=== PATIENT | male | born 1935 | race Caucasian/White ===

== ENCOUNTER → 2017-03-12 | Outpatient (CLI) | payer MEDICARE, OTHER | END | disposition home or self-care (01) | LOC: Rad HDHVI 12:16 | PROVIDERS: ATTEND Internal Medicine Cardiovascular Disease | DX: I70.0 Atherosclerosis of aorta (principal) | CPT/HCPCS: 71020 ==

== ENCOUNTER → 2017-05-19 | Outpatient (CLI) | payer MEDICARE, OTHER | END | disposition home or self-care (01) | LOC: Rad HDHVI 08:52 | PROVIDERS: ATTEND Internal Medicine Cardiovascular Disease | DX: J44.9 Chronic obstructive pulmonary disease, unspecified (principal) | CPT/HCPCS: 93306 ==

== ENCOUNTER → 2017-08-10 | Outpatient (CLI) | payer MEDICARE, OTHER ==
[~2017-08-10] VITALS: Ht 185.4 cm; Wt 88.0 kg
[~2017-08-10] MED LIST: ADENOSINE 74 MG in GIVE UN-DILUTED 0 ML IV ONE; ADENOSINE 90 MG/30 ML INJ IV ONE
== END | disposition home or self-care (01) ==
LOC: Rad HDHVI 13:25
PROVIDERS: ATTEND Internal Medicine Cardiovascular Disease
DX: Z01.810 Encounter for preprocedural cardiovascular examination (principal)
CPT/HCPCS: 78452; 93005; 96374; 96375; A9500; J0153

== ENCOUNTER → 2018-10-24 | Outpatient (CLI) | payer MEDICARE, OTHER ==
[2018-10-24 12:10] LABS: Basophils # (auto) 0 uL; Basophils % (auto) 0.6 % (0.0-2.0); Eosinophils # (auto) 0.3 uL; Eosinophils % (auto) 4.2 % (0.0-7.0); Hematocrit 45.8 % (41.0-53.0); Lymphocytes # (auto) 1.1 uL; Lymphocytes % (auto) 15.5 % (10.0-50.0); Mean Corpuscular Hemoglobin 31.7 pg (28.0-32.0); Mean Corpuscular Hgb Conc. 34.9 g/dL (32.0-36.0); Mean Corpuscular Volume 90.8 fL (80.0-100.0); Monocytes # (auto) 0.5 uL; Monocytes % (auto) 7.6 % (0.0-12.0); Neutrophils % (auto) 72.1 % (37.0-80.0); Nucleated Red Blood Cells % 1.1 %; Platelet Count (auto) 143 10^3/uL (140-450); Red Blood Cells 5.04 10^6/uL (4.5-5.90); Red Cell Distribution Width 13.8 % (11.8-14.3); Urine Blood 1+ /uL (Negative); Urine Specific Gravity 1.023 (1.001-1.035); White Blood Cell 6.9 10^3/uL (4.4-10.8)
[2018-10-24 12:19] LABS: Albumin 3.6 g/dL (3.4-5.0); Calcium 8.9 mg/dL (8.5-10.1)
[2018-10-24 12:25] LABS: BUN/Creatinine Ratio 17.4; Bilirubin, Total 0.7 mg/dL (0.2-1.0); Total Protein 7.3 g/dL (6.4-8.2)
[2018-10-24 12:37] LABS: Free T4 (Free Thyroxine) 1.08 ng/dL (0.89-1.76)
[2018-10-24 12:53] LABS: Prostate Specific Antigen 7.81 ng/mL (0.0-4.0)
== END | disposition home or self-care (01) ==
LOC: LAB 08:22
PROVIDERS: ATTEND Internal Medicine
DX: E55.9 Vitamin D deficiency, unspecified (principal); E03.9 Hypothyroidism, unspecified; E11.9 Type 2 diabetes mellitus without complications; E29.1 Testicular hypofunction; D51.9 Vitamin B12 deficiency anemia, unspecified; N39.0 Urinary tract infection, site not specified; C61 Malignant neoplasm of prostate
CPT/HCPCS: 36415; 80053; 80061; 81003; 82306; 82607; 83036; 84153; 84154; 84403; 84439; 84443; 85025

== ENCOUNTER → 2019-11-14 | Outpatient (CLI) | payer MEDICARE, OTHER ==
[2019-11-14 12:10] LABS: Basophils # (auto) 0 10 ^3/uL (0-0.2); Basophils % (auto) 0.7 % (0.0-2.0); Eosinophils # (auto) 0.3 10 ^3/uL (0-0.8); Eosinophils % (auto) 5.7 % (0.0-7.0); Hematocrit 44.9 % (41.0-53.0); Hemoglobin 15.4 g/dL (13.5-17.5); Lymphocytes # (auto) 1.1 10 ^3/uL (0.4-5.4); Mean Corpuscular Hemoglobin 31.9 pg (28.0-32.0); Mean Corpuscular Hgb Conc. 34.4 g/dL (32.0-36.0); Mean Corpuscular Volume 92.7 fL (80.0-100.0); Monocytes # (auto) 0.5 10 ^3/uL (0-1.3); Neutrophils # (auto) 3.9 10 ^3/uL (1.6-8.6); Neutrophils % (auto) 65.6 % (37.0-80.0); Platelet Count (auto) 128 10^3/uL (140-450); Red Blood Cells 4.84 10^6/uL (4.5-5.90); Red Cell Distribution Width 13.2 % (11.8-14.3); White Blood Cell 5.9 10^3/uL (4.4-10.8)
[2019-11-14 12:13] LABS: Urine Blood 1+ /uL (Negative); Urine Specific Gravity 1.027 (1.001-1.035)
[2019-11-14 12:34] LABS: Free T4 (Free Thyroxine) 0.96 ng/dL (0.89-1.76); Prostate Specific Antigen 2.62 ng/mL (0.0-4.0)
[2019-11-14 12:37] LABS: Albumin 3.5 g/dL (3.4-5.0); BUN/Creatinine Ratio 25.5; Bilirubin, Total 0.4 mg/dL (0.2-1.0); Calcium 9.6 mg/dL (8.5-10.1)
== END | disposition home or self-care (01) ==
LOC: LAB 08:14
PROVIDERS: ATTEND Internal Medicine
DX: C61 Malignant neoplasm of prostate (principal); E03.9 Hypothyroidism, unspecified; K90.9 Intestinal malabsorption, unspecified; E29.1 Testicular hypofunction; N39.0 Urinary tract infection, site not specified; D51.9 Vitamin B12 deficiency anemia, unspecified; Z79.899 Other long term (current) drug therapy; Z00.00 Encounter for general adult medical examination without abnormal findings
CPT/HCPCS: 36415; 80053; 80061; 81003; 82306; 82607; 83036; 84153; 84403; 84439; 84443; 85025; 87086

== ENCOUNTER → 2020-09-09 | Outpatient (CLI) | payer MEDICARE, BC ==
[2020-09-09 11:36] LABS: Urine Blood Negative /uL (Negative); Urine Specific Gravity 1.018 (1.001-1.035)
[2020-09-09 11:59] LABS: Albumin 3.8 g/dL (3.4-5.0); Calcium 9.4 mg/dL (8.5-10.1); Potassium 4.9 mmol/L (3.5-5.1)
[2020-09-09 12:03] LABS: BUN/Creatinine Ratio 22.1; Bilirubin, Total 0.6 mg/dL (0.2-1.0); Total Protein 7.3 g/dL (6.4-8.2)
[2020-09-09 12:08] LABS: Basophils # (auto) 0.1 10 ^3/uL (0-0.2); Basophils % (auto) 0.9 % (0.0-2.0); Eosinophils # (auto) 0.2 10 ^3/uL (0-0.8); Eosinophils % (auto) 3.8 % (0.0-7.0); Hematocrit 43.2 % (41.0-53.0); Hemoglobin 15.3 g/dL (13.5-17.5); Lymphocytes # (auto) 0.9 10 ^3/uL (0.4-5.4); Lymphocytes % (auto) 15.5 % (10.0-50.0); Mean Corpuscular Hgb Conc. 35.4 g/dL (32.0-36.0); Mean Corpuscular Volume 90.4 fL (80.0-100.0); Monocytes # (auto) 0.4 10 ^3/uL (0-1.3); Monocytes % (auto) 7.4 % (0.0-12.0); Neutrophils # (auto) 4.1 10 ^3/uL (1.6-8.6); Neutrophils % (auto) 72.4 % (37.0-80.0); Nucleated Red Blood Cells % 0.1 %; Platelet Count (auto) 137 10^3/uL (140-450); Red Blood Cells 4.78 10^6/uL (4.5-5.90); Red Cell Distribution Width 13.2 % (11.8-14.3); White Blood Cell 5.6 10^3/uL (4.4-10.8)
[2020-09-09 12:11] LABS: Free T4 (Free Thyroxine) 0.85 ng/dL (0.89-1.76); Prostate Specific Antigen 2.51 ng/mL (0.0-4.0)
== END | disposition home or self-care (01) ==
LOC: LAB 10:02
PROVIDERS: ATTEND Internal Medicine
DX: C61 Malignant neoplasm of prostate (principal); D51.3 Other dietary vitamin B12 deficiency anemia; I10 Essential (primary) hypertension; E11.9 Type 2 diabetes mellitus without complications; E55.9 Vitamin D deficiency, unspecified; R00.2 Palpitations; R53.1 Weakness; R30.0 Dysuria
CPT/HCPCS: 36415; 80053; 80061; 81003; 82306; 82607; 83036; 84153; 84403; 84439; 84443; 85025

== ENCOUNTER → 2021-09-10 | Outpatient (CLI) | payer MEDICARE, BC ==
[2021-09-10 11:25] LABS: Basophils # (auto) 0.1 10 ^3/uL (0-0.2); Basophils % (auto) 0.8 % (0.0-2.0); Eosinophils # (auto) 0.2 10 ^3/uL (0-0.8); Hematocrit 44.4 % (41.0-53.0); Hemoglobin 15.6 g/dL (13.5-17.5); Lymphocytes # (auto) 1.1 10 ^3/uL (0.4-5.4); Lymphocytes % (auto) 17.7 % (10.0-50.0); Mean Corpuscular Hemoglobin 31.2 pg (28.0-32.0); Mean Corpuscular Hgb Conc. 35.1 g/dL (32.0-36.0); Mean Corpuscular Volume 88.8 fL (80.0-100.0); Monocytes # (auto) 0.5 10 ^3/uL (0-1.3); Monocytes % (auto) 7.7 % (0.0-12.0); Neutrophils # (auto) 4.6 10 ^3/uL (1.6-8.6); Neutrophils % (auto) 70.8 % (37.0-80.0); Nucleated Red Blood Cells % 0.2 %; Red Cell Distribution Width 13.7 % (11.8-14.3); White Blood Cell 6.5 10^3/uL (4.4-10.8)
[2021-09-10 11:27] LABS: Urine Blood TRACE /uL (Negative); Urine Specific Gravity 1.018 (1.001-1.035)
[2021-09-10 11:49] LABS: Potassium 4.1 mmol/L (3.5-5.1)
[2021-09-10 11:53] LABS: Albumin 3.8 g/dL (3.4-5.0); BUN/Creatinine Ratio 17.7; Calcium 9.3 mg/dL (8.5-10.1)
[2021-09-10 11:56] LABS: Bilirubin, Total 0.8 mg/dL (0.2-1.0)
[2021-09-10 11:58] LABS: Free T4 (Free Thyroxine) 1.25 ng/dL (0.89-1.76); Prostate Specific Antigen 2.15 ng/mL (0.0-4.0)
== END | disposition home or self-care (01) ==
LOC: LAB 08:59
PROVIDERS: ATTEND Internal Medicine
DX: C61 Malignant neoplasm of prostate (principal); D51.3 Other dietary vitamin B12 deficiency anemia; I10 Essential (primary) hypertension; E11.9 Type 2 diabetes mellitus without complications; E55.9 Vitamin D deficiency, unspecified; D64.9 Anemia, unspecified; R00.2 Palpitations; R53.1 Weakness; R30.0 Dysuria
CPT/HCPCS: 36415; 80053; 80061; 81003; 82306; 82607; 83036; 84153; 84403; 84439; 84443; 85025

== ENCOUNTER 2022-07-17 15:08 | Inpatient (IN) | payer MEDICARE, BC ==
[~2022-07-17] VITALS: Ht 182.9 cm; Wt 123.6 kg
[2022-07-17] MEDS ORDERED: dilTIAZem 25 MG/5 ML VIAL IV ONE (16:30)
[2022-07-17] MEDS ORDERED: dilTIAZem 125mg/125ml BAG KIT 125 ML IV ONE (16:30)
[2022-07-17 17:03] LABS: Basophils # (auto) 0 10 ^3/uL (0-0.2); Basophils % (auto) 0.5 % (0.0-2.0); Eosinophils # (auto) 0 10 ^3/uL (0-0.8); Eosinophils % (auto) 0.2 % (0.0-7.0); Hematocrit 44.9 % (41.0-53.0); Hemoglobin 15.4 g/dL (13.5-17.5); Lymphocytes # (auto) 0.7 10 ^3/uL (0.4-5.4); Lymphocytes % (auto) 10.3 % (10.0-50.0); Mean Corpuscular Hemoglobin 31.8 pg (28.0-32.0); Mean Corpuscular Hgb Conc. 34.3 g/dL (32.0-36.0); Mean Corpuscular Volume 92.5 fL (80.0-100.0); Monocytes # (auto) 1.1 10 ^3/uL (0-1.3); Monocytes % (auto) 16.3 % (0.0-12.0); Neutrophils # (auto) 4.9 10 ^3/uL (1.6-8.6); Neutrophils % (auto) 72.7 % (37.0-80.0); Nucleated Red Blood Cells % 0.1 %; Red Blood Cells 4.85 10^6/uL (4.5-5.90); Red Cell Distribution Width 13.9 % (11.8-14.3); White Blood Cell 6.7 10^3/uL (4.4-10.8)
[2022-07-17 17:11] LABS: INR 1.34 (0.9-1.15); Partial Thromboplastin Time 37.6 sec (24.6-33.4)
[2022-07-17 17:12] LABS: Albumin 3.7 g/dL (3.4-5.0); BUN/Creatinine Ratio 22.6; Calcium 8.9 mg/dL (8.5-10.1); Magnesium 2.3 mg/dL (1.6-2.6)
[2022-07-17 17:15] LABS: Bilirubin, Total 0.9 mg/dL (0.2-1.0); Total Protein 6.7 g/dL (6.4-8.2)
[2022-07-17 17:23] LABS: Potassium 4.2 mmol/L (3.5-5.1)
[2022-07-17 18:03] LABS: Urine Bacteria NONE SEEN /hpf (None Seen); Urine Blood 2+ /uL (Negative); Urine Mucus FEW (None Seen); Urine Specific Gravity 1.013 (1.001-1.035); Urine WBC <1 /hpf (0 - 3)
[2022-07-17] MEDS ORDERED: NITROGLYCERIN 0.4 MG SL TAB SL PRN (23:30)
[2022-07-17] MEDS ORDERED: hydrALAZINE HCL 20 MG/ML VL IV PRN (23:30)
[2022-07-17] MEDS ORDERED: FUROSEMIDE 20 MG/2 ML VIAL IV ONE (23:30)
[2022-07-17] MEDS ORDERED: AZITHROMYCIN 500MG/ 250ML 250 ML IV ONE (23:30)
[2022-07-17] MEDS ORDERED: HYDROcodone-ACET 5/325MG TAB PO PRN (23:30)
[2022-07-17] MEDS ORDERED: MORPHINE SULFATE INJ 2 MG/ml SYRG IV PRN (23:30)
[2022-07-17] MEDS ORDERED: DOCUSATE SOD 100 MG CAP PO PRN (23:30)
[2022-07-17] MEDS ORDERED: ACETAMINOPHEN 325 MG TAB PO PRN (23:30)
[2022-07-17] MEDS ORDERED: ONDANSETRON HCL 4 MG/2 ML VIAL IV PRN (23:30)
[2022-07-18] VITALS (34 sets, daily range): BP systolic 47–185; BP diastolic 29–152
[2022-07-18] MEDS: SODIUM CHLOR 0.9% PF (SALINE LOCK) 10ML VIAL/SYR IV SCH ×3 (05:41→22:00)
[2022-07-18 05:51] LABS: Basophils # (auto) 0 10 ^3/uL (0-0.2); Basophils % (auto) 0.8 % (0.0-2.0); Eosinophils # (auto) 0 10 ^3/uL (0-0.8); Eosinophils % (auto) 0.4 % (0.0-7.0); Hemoglobin 14.3 g/dL (13.5-17.5); Lymphocytes # (auto) 0.8 10 ^3/uL (0.4-5.4); Lymphocytes % (auto) 13.1 % (10.0-50.0); Mean Corpuscular Hgb Conc. 34.8 g/dL (32.0-36.0); Mean Corpuscular Volume 91.9 fL (80.0-100.0); Monocytes # (auto) 0.9 10 ^3/uL (0-1.3); Monocytes % (auto) 16.3 % (0.0-12.0); Neutrophils % (auto) 69.4 % (37.0-80.0); Nucleated Red Blood Cells % 0.5 %; Red Blood Cells 4.46 10^6/uL (4.5-5.90); Red Cell Distribution Width 14.2 % (11.8-14.3); White Blood Cell 5.8 10^3/uL (4.4-10.8)
[2022-07-18 06:25] LABS: Albumin 3.4 g/dL (3.4-5.0); Calcium 8.6 mg/dL (8.5-10.1); Potassium 3.9 mmol/L (3.5-5.1)
[2022-07-18 06:27] LABS: BUN/Creatinine Ratio 25.7
[2022-07-18 06:30] LABS: Bilirubin, Total 0.8 mg/dL (0.2-1.0); Total Protein 6.4 g/dL (6.4-8.2)
[2022-07-18] MEDS: dilTIAZem 125mg/125ml BAG KIT 125 ML IV SCH (08:30)
[2022-07-18] MEDS ORDERED: FAMOTIDINE (10MG/ML) 2ML VL IV SCH (10:00)
[2022-07-18] MEDS: AZITHROMYCIN 500MG/ 250ML 250 ML IV SCH ×2 (10:20→19:52)
[2022-07-18] MEDS: ASPirin 81 mg TAB PO SCH (10:26)
[2022-07-18] MEDS: CARVEDILOL 12.5 MG TAB PO SCH ×3 (10:27→19:52)
[2022-07-18] MEDS: ZINC SULFATE 220mg CAP or TAB PO SCH (10:28)
[2022-07-18] MEDS: FUROSEMIDE 20 MG/2 ML VIAL IV SCH (10:28)
[2022-07-18] MEDS: ASCORBIC ACID 500 MG TAB PO SCH ×2 (10:29→22:00)
[2022-07-18] MEDS ORDERED: cefTRIAXone 1GM/50ML D5W 50 ML IV ONE (12:30)
[2022-07-18] MEDS ORDERED: REMDESIVIR PER PHARMACY 0 ML IV SCH (12:45)
[2022-07-18] MEDS ORDERED: NOREPINEPHRINE 8 MG/250ML KIT 250 ML IV ONE (13:09)
[2022-07-18] MEDS: SODIUM CHLORIDE 0.9% 1,000 ML IV SCH ×3 (13:15→23:15)
[2022-07-18] MEDS ORDERED: REMDESIVIR 200 MG in NS 210ml LOADING DOSE ADULT IV ONE (15:00)
[2022-07-18] MEDS: NOREPINEPHRINE 8 MG/250ML KIT 250 ML IV SCH (15:22)
[2022-07-18] MEDS ORDERED: AMIODARONE HCL (50 MG/ ML) 3 ML VIAL IV ONE (17:04)
[2022-07-18] MEDS ORDERED: AMIODARONE 450mg/250ml AE 250 ML IV ONE (17:04)
[2022-07-18] MEDS ORDERED: AMIODARONE HCL 150 MG in D5W 5% 100 ML IV ONE (17:15)
[2022-07-18] MEDS: AMIODARONE 450mg/250ml AE 250 ML IV SCH ×2 (17:30→23:00)
[2022-07-18] MEDS: LORazepam 2MG/ML-1ML VIAL IV PRN (22:12)
[2022-07-19] VITALS (23 sets, daily range): BP systolic 103–134; BP diastolic 57–93
[2022-07-19] MEDS: SODIUM CHLORIDE 0.9% 1,000 ML IV SCH ×4 (04:15→18:35)
[2022-07-19] MEDS: SODIUM CHLOR 0.9% PF (SALINE LOCK) 10ML VIAL/SYR IV SCH ×3 (05:39→21:16)
[2022-07-19 06:30] LABS: Basophils # (auto) 0 10 ^3/uL (0-0.2); Basophils % (auto) 0.3 % (0.0-2.0); Eosinophils # (auto) 0 10 ^3/uL (0-0.8); Hematocrit 41.3 % (41.0-53.0); Hemoglobin 14.7 g/dL (13.5-17.5); Lymphocytes # (auto) 0.8 10 ^3/uL (0.4-5.4); Lymphocytes % (auto) 7.8 % (10.0-50.0); Mean Corpuscular Hemoglobin 32.2 pg (28.0-32.0); Mean Corpuscular Hgb Conc. 35.6 g/dL (32.0-36.0); Mean Corpuscular Volume 90.4 fL (80.0-100.0); Monocytes # (auto) 0.9 10 ^3/uL (0-1.3); Monocytes % (auto) 9.6 % (0.0-12.0); Neutrophils % (auto) 82.3 % (37.0-80.0); Nucleated Red Blood Cells % 0.1 %; Red Blood Cells 4.57 10^6/uL (4.5-5.90); Red Cell Distribution Width 13.9 % (11.8-14.3); White Blood Cell 9.7 10^3/uL (4.4-10.8)
[2022-07-19 06:46] LABS: Calcium 9.1 mg/dL (8.5-10.1); Potassium 4.2 mmol/L (3.5-5.1)
[2022-07-19] MEDS ORDERED: GABA300C10 PO (07:49)
[2022-07-19] MEDS ORDERED: RIV20T PO (07:49)
[2022-07-19] MEDS ORDERED: FINA5TAB4 PO (07:49)
[2022-07-19] MEDS ORDERED: DOXA4TAB6 PO (07:49)
[2022-07-19] MEDS ORDERED: DILT-14 PO (07:49)
[2022-07-19] MEDS: dilTIAZem 125mg/125ml BAG KIT 125 ML IV SCH (08:19)
[2022-07-19] MEDS: ENOXAPARIN SOD 40 MG/0.4 ML SYRINGE SC SCH (09:05)
[2022-07-19] MEDS: dilTIAZem HCL 180MG ER CAP PO SCH (09:15)
[2022-07-19] MEDS: FUROSEMIDE 20 MG/2 ML VIAL IV SCH (09:15)
[2022-07-19] MEDS: cefTRIAXone 1GM/50ML D5W 50 ML IV SCH (09:15)
[2022-07-19] MEDS: ASPirin 81 mg TAB PO SCH (09:15)
[2022-07-19] MEDS: ZINC SULFATE 220mg CAP or TAB PO SCH (09:15)
[2022-07-19] MEDS: DexAMETHasone SOD PHOS 10MG/1ML VIAL INJ IV SCH (09:15)
[2022-07-19] MEDS: ASCORBIC ACID 500 MG TAB PO SCH ×2 (09:16→21:17)
[2022-07-19 09:27] LABS: Albumin 3.3 g/dL (3.4-5.0); Bilirubin, Direct 0.3 mg/dL (0-0.2); Bilirubin, Total 0.8 mg/dL (0.2-1.0); Total Protein 6.2 g/dL (6.4-8.2)
[2022-07-19] MEDS: LORazepam 2MG/ML-1ML VIAL IV PRN (12:49)
[2022-07-19] MEDS: NOREPINEPHRINE 8 MG/250ML KIT 250 ML IV SCH (13:15)
[2022-07-19] MEDS: AMIODARONE 450mg/250ml AE 250 ML IV SCH ×2 (13:58→18:34)
[2022-07-19] MEDS ORDERED: REMDESIVIR 100mg 100 MG in SODIUM CHL 0.9% 230 ML IV SCH (15:00)
[2022-07-19] MEDS: CARVEDILOL 12.5 MG TAB PO SCH (21:16)
[2022-07-20] VITALS (18 sets, daily range): BP systolic 92–145; BP diastolic 5–86
[2022-07-20] MEDS: SODIUM CHLORIDE 0.9% 1,000 ML IV SCH ×3 (00:15→10:15)
[2022-07-20] MEDS: SODIUM CHLOR 0.9% PF (SALINE LOCK) 10ML VIAL/SYR IV SCH ×3 (05:29→22:46)
[2022-07-20 06:05] LABS: Basophils # (auto) 0 10 ^3/uL (0-0.2); Basophils % (auto) 0.1 % (0.0-2.0); Eosinophils # (auto) 0 10 ^3/uL (0-0.8); Hematocrit 40.8 % (41.0-53.0); Hemoglobin 13.8 g/dL (13.5-17.5); Lymphocytes # (auto) 0.7 10 ^3/uL (0.4-5.4); Lymphocytes % (auto) 5.9 % (10.0-50.0); Mean Corpuscular Hemoglobin 32.2 pg (28.0-32.0); Mean Corpuscular Hgb Conc. 33.9 g/dL (32.0-36.0); Mean Corpuscular Volume 95.1 fL (80.0-100.0); Monocytes # (auto) 0.9 10 ^3/uL (0-1.3); Monocytes % (auto) 7.3 % (0.0-12.0); Neutrophils # (auto) 10.8 10 ^3/uL (1.6-8.6); Neutrophils % (auto) 86.7 % (37.0-80.0); Red Blood Cells 4.29 10^6/uL (4.5-5.90); Red Cell Distribution Width 14.2 % (11.8-14.3); White Blood Cell 12.4 10^3/uL (4.4-10.8)
[2022-07-20] MEDS: dilTIAZem 125mg/125ml BAG KIT 125 ML IV SCH (08:30)
[2022-07-20] MEDS: cefTRIAXone 1GM/50ML D5W 50 ML IV SCH (09:00)
[2022-07-20] MEDS: DexAMETHasone SOD PHOS 10MG/1ML VIAL INJ IV SCH (09:53)
[2022-07-20] MEDS: FUROSEMIDE 20 MG/2 ML VIAL IV SCH (09:53)
[2022-07-20] MEDS: ENOXAPARIN SOD 40 MG/0.4 ML SYRINGE SC SCH (09:54)
[2022-07-20] MEDS: dilTIAZem HCL 180MG ER CAP PO SCH (09:54)
[2022-07-20] MEDS: ASPirin 81 mg TAB PO SCH ×2 (09:55→10:24)
[2022-07-20] MEDS: ASCORBIC ACID 500 MG TAB PO SCH ×2 (09:55→22:46)
[2022-07-20] MEDS: AZITHROMYCIN 500MG/ 250ML 250 ML IV SCH (10:01)
[2022-07-20] MEDS: ZINC SULFATE 220mg CAP or TAB PO SCH (10:01)
[2022-07-20] MEDS: CARVEDILOL 12.5 MG TAB PO SCH ×2 (10:01→22:47)
[2022-07-20 10:20] LABS: Albumin 3.3 g/dL (3.4-5.0); BUN/Creatinine Ratio 39.5; Bilirubin, Direct 0.4 mg/dL (0-0.2); Bilirubin, Total 1.3 mg/dL (0.2-1.0); Calcium 9.1 mg/dL (8.5-10.1); Phosphorus 2.6 mg/dL (2.5-4.90); Potassium 3.8 mmol/L (3.5-5.1); Total Protein 6.4 g/dL (6.4-8.2)
[2022-07-20] MEDS: LORazepam 2MG/ML-1ML VIAL IV PRN (12:35)
[2022-07-20] MEDS: AMIODARONE 450mg/250ml AE 250 ML IV SCH (12:35)
[2022-07-20] MEDS: DOXYCYCLINE 100 MG TAB/CAP PO SCH (22:46)
[2022-07-21 05:00] VITALS: BP 135/90
[2022-07-21] MEDS: SODIUM CHLOR 0.9% PF (SALINE LOCK) 10ML VIAL/SYR IV SCH ×3 (05:18→22:17)
[2022-07-21] MEDS: AMIODARONE 450mg/250ml AE 250 ML IV SCH (05:18)
[2022-07-21 05:41] LABS: Basophils # (auto) 0 10 ^3/uL (0-0.2); Basophils % (auto) 0.1 % (0.0-2.0); Eosinophils # (auto) 0 10 ^3/uL (0-0.8); Hematocrit 42.4 % (41.0-53.0); Hemoglobin 14.7 g/dL (13.5-17.5); Lymphocytes # (auto) 0.7 10 ^3/uL (0.4-5.4); Lymphocytes % (auto) 4.5 % (10.0-50.0); Mean Corpuscular Hemoglobin 31.5 pg (28.0-32.0); Mean Corpuscular Hgb Conc. 34.8 g/dL (32.0-36.0); Mean Corpuscular Volume 90.6 fL (80.0-100.0); Monocytes # (auto) 0.8 10 ^3/uL (0-1.3); Monocytes % (auto) 4.8 % (0.0-12.0); Neutrophils # (auto) 14.3 10 ^3/uL (1.6-8.6); Neutrophils % (auto) 90.6 % (37.0-80.0); Red Blood Cells 4.69 10^6/uL (4.5-5.90); White Blood Cell 15.8 10^3/uL (4.4-10.8)
[2022-07-21 06:18] LABS: Albumin 3.4 g/dL (3.4-5.0); Calcium 9.1 mg/dL (8.5-10.1)
[2022-07-21 06:20] LABS: BUN/Creatinine Ratio 41.1; Bilirubin, Total 1.4 mg/dL (0.2-1.0); Total Protein 6.1 g/dL (6.4-8.2)
[2022-07-21] MEDS: cefTRIAXone 1GM/50ML D5W 50 ML IV SCH (08:51)
[2022-07-21 09:00] VITALS: BP 117/80
[2022-07-21] MEDS: ENOXAPARIN SOD 40 MG/0.4 ML SYRINGE SC SCH (10:00)
[2022-07-21] MEDS: DexAMETHasone SOD PHOS 10MG/1ML VIAL INJ IV SCH (10:25)
[2022-07-21] MEDS: FUROSEMIDE 20 MG/2 ML VIAL IV SCH (10:25)
[2022-07-21] MEDS: DOXYCYCLINE 100 MG TAB/CAP PO SCH ×2 (10:26→22:18)
[2022-07-21] MEDS: CARVEDILOL 12.5 MG TAB PO SCH ×2 (10:26→22:18)
[2022-07-21] MEDS: ZINC SULFATE 220mg CAP or TAB PO SCH (10:26)
[2022-07-21] MEDS: dilTIAZem HCL 180MG ER CAP PO SCH (10:26)
[2022-07-21] MEDS: ASCORBIC ACID 500 MG TAB PO SCH ×2 (10:27→22:18)
[2022-07-21] MEDS: AMIODARONE HCL 200 MG TAB PO SCH ×2 (10:27→22:17)
[2022-07-21 13:00] VITALS: BP 108/64
[2022-07-21 17:00] VITALS: BP 107/64
[2022-07-21 22:00] VITALS: BP 131/80
[2022-07-22] MEDS: AMIODARONE 450mg/250ml AE 250 ML IV SCH (02:30)
[2022-07-22 05:00] VITALS: BP 110/72
[2022-07-22 05:54] LABS: Basophils # (auto) 0 10 ^3/uL (0-0.2); Basophils % (auto) 0.2 % (0.0-2.0); Eosinophils # (auto) 0 10 ^3/uL (0-0.8); Hematocrit 42.7 % (41.0-53.0); Hemoglobin 14.9 g/dL (13.5-17.5); Lymphocytes # (auto) 0.6 10 ^3/uL (0.4-5.4); Lymphocytes % (auto) 3.6 % (10.0-50.0); Mean Corpuscular Hgb Conc. 34.9 g/dL (32.0-36.0); Mean Corpuscular Volume 91.6 fL (80.0-100.0); Monocytes # (auto) 0.9 10 ^3/uL (0-1.3); Monocytes % (auto) 5.2 % (0.0-12.0); Neutrophils # (auto) 15.8 10 ^3/uL (1.6-8.6); Nucleated Red Blood Cells % 0.1 %; Red Blood Cells 4.66 10^6/uL (4.5-5.90); Red Cell Distribution Width 13.7 % (11.8-14.3); White Blood Cell 17.3 10^3/uL (4.4-10.8)
[2022-07-22] MEDS: SODIUM CHLOR 0.9% PF (SALINE LOCK) 10ML VIAL/SYR IV SCH (05:56)
[2022-07-22 07:29] LABS: Albumin 3.3 g/dL (3.4-5.0); Bilirubin, Total 1.2 mg/dL (0.2-1.0); Calcium 9.2 mg/dL (8.5-10.1); Total Protein 6.1 g/dL (6.4-8.2)
[2022-07-22] MEDS: cefTRIAXone 1GM/50ML D5W 50 ML IV SCH (08:23)
[2022-07-22 09:00] VITALS: BP 109/76
[2022-07-22] MEDS: DexAMETHasone SOD PHOS 10MG/1ML VIAL INJ IV SCH (09:21)
[2022-07-22] MEDS: FUROSEMIDE 20 MG/2 ML VIAL IV SCH (09:21)
[2022-07-22] MEDS: ZINC SULFATE 220mg CAP or TAB PO SCH (09:22)
[2022-07-22] MEDS: dilTIAZem HCL 180MG ER CAP PO SCH (09:22)
[2022-07-22] MEDS: DOXYCYCLINE 100 MG TAB/CAP PO SCH (09:22)
[2022-07-22] MEDS: AMIODARONE HCL 200 MG TAB PO SCH (09:23)
[2022-07-22] MEDS: ASCORBIC ACID 500 MG TAB PO SCH (09:23)
[2022-07-22] MEDS: CARVEDILOL 12.5 MG TAB PO SCH (09:24)
[2022-07-22] MEDS ORDERED: AMIO200T33 PO (09:31)
[2022-07-22] MEDS ORDERED: DOXY-332 PO (09:32)
[2022-07-22 10:28] VITALS: BP 109/76
== END 2022-07-22 12:19 | disposition home or self-care (01) | DRG 177 ==
LOC: EDBD 15:08 → ER 15:11 → TELE 23:27 → DOU IN ICU 07-18 11:33 → ICU CENTRL 07-18 13:18 → TELE-CENTR 07-20 22:14
PROVIDERS: ADMIT Nurse Practitioner Family; ATTEND Internal Medicine Pulmonary Disease
PROC: 5A09357 Assistance with Respiratory Ventilation, Less than 24 Consecutive Hours, Continuous Positive Airway Pressure (ICD-10-PCS; principal; 2022-07-18)
PROC: XW033E5 Introduction of Remdesivir Anti-infective into Peripheral Vein, Percutaneous Approach, New Technology Group 5 (ICD-10-PCS; 2022-07-18)
DX: U07.1 COVID-19 (principal); I50.23 Acute on chronic systolic (congestive) heart failure; J12.82 Pneumonia due to coronavirus disease 2019; J96.01 Acute respiratory failure with hypoxia; I48.91 Unspecified atrial fibrillation; D69.6 Thrombocytopenia, unspecified
CPT/HCPCS: 36415; 36600; 71045; 80048; 80053; 80076; 81001; 82248; 82805; 83735; 83880; 84100; 84484; 85025; 85379; 85610; 85730; 87081; 87426; 93005; 93306; 94660; 96365; 96366; 96368; 96375; 96376; G0378; J0696; J1100; J7060

== ENCOUNTER → 2022-08-18 | Outpatient (CLI) | payer MEDICARE, BC ==
[~2022-08-18] MED LIST changes: -ADENOSINE 74 MG in GIVE UN-DILUTED 0 ML IV ONE; -ADENOSINE 90 MG/30 ML INJ IV ONE; +AMIO200T33 PO; +DILT-14 PO; +DOXA4TAB6 PO; +DOXY-332 PO; +FINA5TAB4 PO; +GABA300C10 PO; +RIV20T PO
== END | disposition home or self-care (01) ==
LOC: Rad HDHVI 10:57
PROVIDERS: ATTEND Internal Medicine
DX: R06.02 Shortness of breath (principal); R05.9 Cough, unspecified
CPT/HCPCS: 71046

== ENCOUNTER → 2022-09-10 | Outpatient (CLI) | payer MEDICARE, BC | END | disposition home or self-care (01) | LOC: Rad HDHVI 15:57 | PROVIDERS: ATTEND Internal Medicine Cardiovascular Disease | DX: I08.1 Rheumatic disorders of both mitral and tricuspid valves (principal); I11.9 Hypertensive heart disease without heart failure; I48.91 Unspecified atrial fibrillation | CPT/HCPCS: 93306 ==

== ENCOUNTER → 2022-09-17 | Outpatient (CLI) | payer MEDICARE, BC ==
[~2022-09-17] VITALS: Ht 185.4 cm; Wt 85.3 kg
[~2022-09-17] MED LIST changes: +ADENOSINE 72 MG in GIVE UN-DILUTED 0 ML IV ONE; +ADENOSINE 90 MG/30 ML INJ IV ONE
== END | disposition home or self-care (01) ==
LOC: Rad HDHVI 08:09
PROVIDERS: ATTEND Internal Medicine Cardiovascular Disease
DX: I50.23 Acute on chronic systolic (congestive) heart failure (principal); I48.20 Chronic atrial fibrillation, unspecified; I10 Essential (primary) hypertension; Z82.49 Family history of ischemic heart disease and other diseases of the circulatory system; R06.2 Wheezing; R07.89 Other chest pain
CPT/HCPCS: 78452; 93005; 96374; 96375; A9500; J0153

== ENCOUNTER → 2022-12-01 | Outpatient (CLI) | payer MEDICARE, BC ==
[~2022-12-01] MED LIST changes: -ADENOSINE 72 MG in GIVE UN-DILUTED 0 ML IV ONE; -ADENOSINE 90 MG/30 ML INJ IV ONE
[2022-12-01 09:00] VITALS: BP 130/70
[2022-12-01 09:30] VITALS: BP 117/61
== END | disposition home or self-care (01) ==
LOC: Rad HDHVI 08:55
PROVIDERS: ATTEND Internal Medicine Cardiovascular Disease
DX: Z01.818 Encounter for other preprocedural examination (principal); R94.31 Abnormal electrocardiogram [ECG] [EKG]; I48.91 Unspecified atrial fibrillation
CPT/HCPCS: 71046; 93005; G0463

== ENCOUNTER → 2023-09-29 | Outpatient (CLI) | payer MEDICARE, BC ==
[~2023-09-29] MED LIST changes: -DOXA4TAB6 PO; +DOXA4TAB83 PO; -DOXY-332 PO; +DOXY-448 PO; +GABA-1250 PO; -GABA300C10 PO
== END | disposition home or self-care (01) ==
LOC: Rad HDHVI 10:56
PROVIDERS: ATTEND Internal Medicine Cardiovascular Disease
DX: I08.1 Rheumatic disorders of both mitral and tricuspid valves (principal); I10 Essential (primary) hypertension; R06.02 Shortness of breath
CPT/HCPCS: 93306